=== PATIENT | female | born 1935 | race Caucasian/White ===

== ENCOUNTER → 2018-02-23 | Outpatient (CLI) | payer OTHER ==
[~2018-02-23] MED LIST: ACCURETIC 20-11 EACH PO; ACTONEL150 MG PO; ACTONEL30 MG; ADVAIR HFA 115-12 GM IH; AMLODIPINE BESYL5 MG PO; AVELOX 400 MG400 MG PO; CALTRATE-600 W1 EACH PO; CELEXA 20 MG TA20 M1 PO; LEVOTHROID112 MCG PO; LISINOPRIL10 MG PO; NEPHROCAPS SOFT1 CAP PO; NICOTINE TRANSDE7 MG TD; PREDNISONE 10 M10 M1 PO; SINGULAIR 10 MG10 M1 PO; SPIRIVA INH; VENTOLIN HFA INH8 GM IH; VITAMIN D1000 UNI1 PO; ZOCOR 20 MG TAB20 M1 PO; ZOLOFT 50 MG TA50 MG PO
== END ==
LOC: M.RAD 14:45
DX: Z12.31 Encounter for screening mammogram for malignant neoplasm of breast (principal)

== ENCOUNTER → 2018-03-11 | Outpatient (CLI) | payer OTHER | LOC: M.ULTRA 10:23 | DX: E04.1 Nontoxic single thyroid nodule (principal); E03.4 Atrophy of thyroid (acquired); E83.52 Hypercalcemia ==

== ENCOUNTER → 2018-07-21 | Outpatient (CLI) | payer OTHER | LOC: M.RAD 17:05 | DX: J44.9 Chronic obstructive pulmonary disease, unspecified (principal) ==